=== PATIENT | male | born 1995 | race Caucasian/White ===

== ENCOUNTER → 2022-11-29 13:00 | Outpatient (CLI) | payer OTHER, SELFPAY ==
--- NOTE | 2022-11-29 | DI.MRI.S_ITS ---
PROCEDURE: MR SHOULDER RT W CON INDICATIONS: GLENOID LABRUM LESION OF RIGHT SHOULDER TECHNIQUE: After the administration of 12 mL of dilute intra-articular Gadolinium contrast, oblique coronal T1 and T2 spin echo with fat saturation, oblique sagittal T1 spin echo with and without fat saturation, oblique sagittal T2 fast spin echo with fat saturation, axial T1 spin echo with fat saturation through the shoulder. COMPARISON: [facility], , [place] SHOULDER INJECTION MR/CT RT, 11/29/2022, 13:29. FINDINGS: Image quality: Excellent. Rotator cuff: Mild supraspinatus tendinosis. The infraspinatus, teres minor, and subscapularis tendons are intact. No significant rotator cuff tendon tearing. The rotator cuff musculature is normal in bulk. Bones and bursae: No acute trabecular bone injury. Focal cortical irregularity is seen at the posterosuperior humeral head measuring 16 x 7 x 5 mm that may represent a remote prior L6 lesion versus chronic osseous erosion. No suspicious intra-articular filling defect within the glenohumeral joint space. Mild degenerative changes are seen at the acromioclavicular joint. Trace noncommunicating subacromial/subdeltoid bursal fluid. Capsule and soft tissues: Mildly increased signal is seen along the chondrolabral junction of the posterior labrum with possible small nondisplaced posterosuperior labral tear. The proximal biceps long head tendon is intact. Glenohumeral ligaments are intact. IMPRESSION: 1. Possible nondisplaced partial tear of the posterosuperior labrum versus fluid within the chondrolabral sulcus. The labrum is otherwise intact. 2. Focal nonedematous cortical irregularity at the posterosuperior humeral head measuring 16 x 7 x 5 mm. This finding can be seen in the setting of posterior/internal impingement if the patient is an overhead throwing athlete. Alternatively, this could represent a small chronic Hill-Sachs lesion if there has been prior anterior instability versus a chronic osseous erosion. 3. Mild supraspinatus tendinosis. No significant rotator cuff tendon tear. 4. Mild acromioclavicular joint osteoarthrosis. Approved by: Ulises Jaeger M.D. on 11/30/2022 at 10:01
--- NOTE | 2022-11-29 | DI.RAD.S_ITS ---
PROCEDURE: [place] SHOULDER INJECTION MR/CT RT INDICATIONS: GLENOID LABRUM LESION OF RIGHT SHOULDER COMPARISON: None. TECHNIQUE: The indications, alternatives, benefits, risks, and complications of the procedure were explained to the patient. Written informed consent was obtained and placed in the chart. The shoulder was examined fluoroscopically and a site for needle placement chosen for entry into the glenohumeral joint from an anterior approach. The skin was prepped and draped in a sterile fashion, and 1% lidocaine infiltrated from skin down to joint capsule. A spinal needle was inserted into the glenohumeral joint, and a small amount of iodinated contrast media injected to confirm intra-articular placement of the needle tip. This was followed by approximately 12 mL dilute solution of a gadolinium containing MR contrast agent. The needle was removed and a dressing was applied. The patient was given postprocedural instructions and sent to the MR suite for MR imaging. FINDINGS: A single fluoroscopic spot image demonstrates intra-articular location of injected iodinated contrast. IMPRESSION: Successful fluoroscopically guided administration of dilute Gadolinium solution into the shoulder joint for MR arthrogram. Dictated by: Hieu Ryan M.D. on 12/05/2022 at 8:08 Approved by: Hieu Ryan M.D. on 12/05/2022 at 8:08
[2022-11-29] MEDS: LIDOCAINE 1% 20 ML INJ (14:44)
[2022-11-29] MEDS: SODIUM CHLORIDE 0.9 % 20 ML VIAL IV (14:45)
== END ==
PROVIDERS: Referring Provider Internal Medicine; Visit Provider Internal Medicine
DX: S43.431A Superior glenoid labrum lesion of right shoulder, initial encounter (principal)
CPT/HCPCS: 23350; 73222; 77002; A9270